=== PATIENT | female | born 1990 | race Caucasian/White ===

== ENCOUNTER 2018-01-18 11:55 | Emergency (ER) | payer MEDICAID ==
[2018-01-18 13:47] LABS: ADD MAN DIFF? NO
[2018-01-18 13:52] LABS: WHITE BLOOD COUNT 9.6 10^3/ul (4.8-10.8)
[2018-01-18 13:52] LABS: BASOPHILS % 0.2 % (0.0-2.0); EOSINOPHILS # 0.1 10^3/ul (0.0-0.5); EOSINOPHILS % 0.9 % (0.0-7.0); HEMATOCRIT 37.3 % (37.0-47.0); HEMOGLOBIN 12.8 g/dl (12.0-16.0); MEAN CORPUSCULAR HEMOGLOBIN 30.8 pg (29.0-33.0); MEAN CORPUSCULAR HGB CONC 34.3 g/dl (32.0-37.0); MEAN CORPUSCULAR VOLUME 89.7 fl (82.0-101.0); MEAN PLATELET VOLUME 11.5 fl (7.4-10.4); MONOCYTE # 0.6 10^3/ul (0.3-0.9); MONOCYTES % 6.6 % (0.0-11.0); NEUTROPHIL # 6.9 10^3/ul (1.6-7.5); NEUTROPHILS % 71.1 % (39.0-77.0); PLATELET COUNT 190 10^3/UL (140-415); RED BLOOD COUNT 4.16 10^6/ul (4.20-5.40); RED CELL DISTRIBUTION WIDTH 13.2 % (11.5-14.5)
[2018-01-18 13:55] LABS: ADD UMIC YES; UR ASCORBIC ACID NEGATIVE (NEGATIVE); UR BACTERIA FEW /HPF (NONE SEEN); UR BILIRUBIN (Dip) NEGATIVE (NEGATIVE); UR BLOOD (Dip) NEGATIVE (NEGATIVE); UR CLARITY SLIGHTLY CLOUDY (CLEAR); UR COLOR YELLOW (YELLOW); UR GLUCOSE (Dip) NEGATIVE (NEGATIVE); UR KETONES (Dip) TRACE mg/dL (NEGATIVE); UR LEUKOCYTE ESTERASE (Dip) 1+ Leu/ul (NEGATIVE); UR NITRITE (Dip) NEGATIVE (NEGATIVE); UR RBC 1 /HPF (0-5); UR SPECIFIC GRAVITY (Dip) 1.013 (1.003-1.030); UR SQUAMOUS EPITHELIAL CELL FEW /HPF (FEW); UR TOTAL PROTEIN (Dip) NEGATIVE (NEGATIVE); UR UROBILINOGEN (Dip) NEGATIVE (NEGATIVE); UR WBC 1 /HPF (0-5)
== END 2018-01-18 15:40 | disposition home or self-care (01) ==
LOC: FTE 11:55
DX: O03.4 Incomplete spontaneous abortion without complication (principal); R10.2 Pelvic and perineal pain
CPT/HCPCS: 36415; 76801; 81001; 84702; 85025; 86900; 86901; 99284-25

== ENCOUNTER 2018-01-20 04:31 | Inpatient (IN) | payer OTHER, MEDICAID ==
[2018-01-20] MEDS ORDERED: LACTATED RINGER'S 1,000 ML IV (07:57)
[2018-01-20] MEDS ORDERED: CARBOPROST 250 MCG INJ IM (08:00)
[2018-01-20] MEDS ORDERED: MISOPROSTOL 200 MCG TAB PR (08:00)
[2018-01-20] MEDS ORDERED: OXYCODONE/ASPIRIN (4.88/325) TAB PO (08:00)
[2018-01-20] MEDS ORDERED: BUTORPHANOL 2 MG INJ IV (08:00)
[2018-01-20] MEDS ORDERED: MISOPROSTOL 100 MCG TAB VAG (08:00)
[2018-01-20] MEDS ORDERED: LIDOCAINE 1% (MPF) 30 ML INJ INJ (08:00)
[2018-01-20] MEDS ORDERED: IBUPROFEN 600 MG TAB PO (08:00)
[2018-01-20] MEDS ORDERED: BUTORPHANOL 1 MG INJ IV (08:00)
[2018-01-20] MEDS ORDERED: OXYTOCIN 30 UNITS/LR 500 ML IV ×2 (08:00)
[2018-01-20] MEDS ORDERED: METHYLERGONOVINE 0.2 MG INJ IM (08:00)
[2018-01-20] MEDS: LACTATED RINGER'S 1,000 ML IV ×3 (08:19→23:15)
[2018-01-20 08:36] LABS: ADD MAN DIFF? NO
[2018-01-20 08:48] LABS: BASOPHILS % 0.3 % (0.0-2.0); EOSINOPHILS # 0.1 10^3/ul (0.0-0.5); EOSINOPHILS % 1.5 % (0.0-7.0); HEMATOCRIT 36.4 % (37.0-47.0); HEMOGLOBIN 12.6 g/dl (12.0-16.0); LYMPHOCYTES # 2.2 10^3/ul (0.8-2.9); LYMPHOCYTES % 24.1 % (15.0-51.0); MEAN CORPUSCULAR HEMOGLOBIN 30.8 pg (29.0-33.0); MEAN CORPUSCULAR HGB CONC 34.6 g/dl (32.0-37.0); MEAN PLATELET VOLUME 12.1 fl (7.4-10.4); MONOCYTE # 0.5 10^3/ul (0.3-0.9); MONOCYTES % 5.8 % (0.0-11.0); NEUTROPHIL # 6.3 10^3/ul (1.6-7.5); NEUTROPHILS % 67.9 % (39.0-77.0); PLATELET COUNT 188 10^3/UL (140-415); RED BLOOD COUNT 4.09 10^6/ul (4.20-5.40); RED CELL DISTRIBUTION WIDTH 13.1 % (11.5-14.5)
[2018-01-20 08:48] LABS: WHITE BLOOD COUNT 9.3 10^3/ul (4.8-10.8)
[2018-01-20 09:21] LABS: INR 0.95; PROTIME 12.8 Sec (11.9-14.9)
[2018-01-20 09:22] LABS: PARTIAL THROMBOPLASTIN TIME 26.4 Sec (23.0-35.0)
[2018-01-20] MEDS: MISOPROSTOL 200 MCG TAB VAG (09:35)
[2018-01-20 10:23] LABS: ADD UMIC NO; UR ASCORBIC ACID NEGATIVE (NEGATIVE); UR BILIRUBIN (Dip) NEGATIVE (NEGATIVE); UR BLOOD (Dip) NEGATIVE (NEGATIVE); UR CLARITY CLEAR (CLEAR); UR COLOR STRAW (YELLOW); UR GLUCOSE (Dip) NEGATIVE (NEGATIVE); UR KETONES (Dip) 1+ mg/dL (NEGATIVE); UR LEUKOCYTE ESTERASE (Dip) NEGATIVE Leu/ul (NEGATIVE); UR NITRITE (Dip) NEGATIVE (NEGATIVE); UR SPECIFIC GRAVITY (Dip) 1.008 (1.003-1.030); UR TOTAL PROTEIN (Dip) NEGATIVE (NEGATIVE); UR UROBILINOGEN (Dip) NEGATIVE (NEGATIVE)
[2018-01-20 15:12] LABS: RAPID PLASMA REAGIN NONREACTIVE (NR)
[2018-01-21 01:53] LABS: INR 1.08; PROTIME 14.1 Sec (11.9-14.9); PT RATIO 1.1
[2018-01-21 01:54] LABS: PARTIAL THROMBOPLASTIN TIME 29.4 Sec (23.0-35.0)
[2018-01-21] MEDS: LACTATED RINGER'S 1,000 ML IV* ×3 (07:41→23:41)
[2018-01-21] MEDS: OXYTOCIN 30 UNITS/LR 500 ML IV ×2 (07:45→10:01)
[2018-01-21] MEDS ORDERED: MISOPROSTOL 200 MCG TAB PR (08:00)
[2018-01-21] MEDS ORDERED: LANOLIN 7 GM TUBE TOP (08:00)
[2018-01-21] MEDS ORDERED: METHYLERGONOVINE 0.2 MG INJ IM (08:00)
[2018-01-21] MEDS ORDERED: ACETAMINOPHEN 325 MG TAB PO (08:00)
[2018-01-21] MEDS ORDERED: CARBOPROST 250 MCG INJ IM (08:00)
[2018-01-21] MEDS ORDERED: morphine 2 MG INJ IV (08:00)
[2018-01-21] MEDS ORDERED: ONDANSETRON 4 MG INJ IV (08:00)
[2018-01-21] MEDS ORDERED: OXYTOCIN 30 UNITS/LR 500 ML IV (08:00)
[2018-01-21] MEDS ORDERED: HYDROCODONE/APAP (5/325) TAB PO (08:00)
[2018-01-21] MEDS ORDERED: DIPHENHYDRAMINE 25 MG CAP PO (08:00)
[2018-01-21] MEDS ORDERED: WITCH HAZEL/GLYCERIN PAD PR (08:00)
[2018-01-21] MEDS ORDERED: ZOLPIDEM 5 MG TAB PO (08:00)
[2018-01-21] MEDS: SENNA/DOCUSATE NA (8.6MG/50MG) TAB PO ×2 (09:00→21:42)
[2018-01-21] MEDS: FOLIC ACID 1 MG TAB PO (11:31)
[2018-01-21] MEDS: IBUPROFEN 600 MG TAB PO ×2 (11:32→18:00)
[2018-01-22] MEDS: IBUPROFEN 600 MG TAB PO ×5 (00:03→23:39)
[2018-01-22 08:19] LABS: HEMATOCRIT 30.7 % (37.0-47.0); HEMOGLOBIN 10.5 g/dl (12.0-16.0)
[2018-01-22] MEDS: FOLIC ACID 1 MG TAB PO (10:12)
[2018-01-22] MEDS: INFLUENZA VIRUS VACCINE 0.5 ML (DISPENSING) IM* (10:15)
[2018-01-22] MEDS: SENNA/DOCUSATE NA (8.6MG/50MG) TAB PO ×2 (10:15→21:33)
[2018-01-23] MEDS: IBUPROFEN 600 MG TAB PO ×3 (06:00→12:00)
[2018-01-23] MEDS: MEASLES,MUMPS,RUBELLA VACCINE INJ SC* (08:26)
[2018-01-23] MEDS: FOLIC ACID 1 MG TAB PO (08:57)
[2018-01-23] MEDS: SENNA/DOCUSATE NA (8.6MG/50MG) TAB PO (08:57)
[2018-01-23] MEDS: DIPHTH/TET/ACEL PERTUSS (ADULT) 0.5 ML VIAL IM* (08:58)
[2018-01-23] MEDS: VARICELLA VACCINE LIVE/PF 1,350 UNIT/0.5 ML ML SC* (09:00)
== END 2018-01-23 13:40 | disposition home or self-care (01) | DRG 779 ==
LOC: L-D 04:31 → PP1 01-21 10:29
PROVIDERS: Obstetrics & Gynecology
PROC: 10D17Z9 Manual Extraction of Products of Conception, Retained, Via Natural or Artificial Opening (ICD-10-PCS; principal; 2018-01-21)
DX: O02.1 Missed abortion (principal)
CPT/HCPCS: 81003; 85014; 85018; 85025; 85384; 85610; 85730; 86592; 86850; 86900; 86901; 87086; 88307; 90686; 90715; 90716